=== PATIENT | female | born 1995 | race Caucasian/White ===

== ENCOUNTER → 2018-02-21 16:31 | Outpatient (CLI) | payer SELFPAY ==
[2018-02-21 18:18] LABS: APPEARANCE CLEAR (CLEAR); BILIRUBIN NEGATIVE (NEGATIVE); COLOR YELLOW (YELLOW); GLUCOSE NEGATIVE (NEGATIVE); KETONE NEGATIVE (NEGATIVE); NITRITE NEGATIVE (NEGATIVE); PROTEIN NEGATIVE (NEGATIVE); UROBILINOGEN NORMAL (NORMAL)
[2018-02-21 18:20] LABS: WHITE CELLS - URINE OCC /hpf (0-5)
[2018-02-21 18:21] LABS: BACTERIA FEW /hpf (NONE SEEN)
[2018-02-21 18:31] LABS: UDS - AMPHET NEGATIVE QUAL (NEGATIVE); UDS - BARB NEGATIVE QUAL (NEGATIVE); UDS - BENZO NEGATIVE QUAL (NEGATIVE); UDS - COCAINE NEGATIVE QUAL (NEGATIVE); UDS - OPIATE NEGATIVE QUAL (NEGATIVE); UDS - PCP NEGATIVE QUAL (NEGATIVE); UDS - THC NEGATIVE QUAL (NEGATIVE)
== END | disposition home or self-care (01) ==
LOC: D.LDO 16:31
PROVIDERS: Obstetrics & Gynecology
DX: O26.892 Other specified pregnancy related conditions, second trimester (principal); Z3A.21 21 weeks gestation of pregnancy; R10.30 Lower abdominal pain, unspecified; M54.5 Low back pain

== ENCOUNTER → 2018-03-31 19:24 | Outpatient (CLI) | payer SELFPAY ==
[2018-03-31 20:51] LABS: CREATININE - SERUM 0.5 mg/dL (0.6-1.3)
== END | disposition home or self-care (01) ==
LOC: D.LDO 19:24
PROVIDERS: Obstetrics & Gynecology
DX: O26.892 Other specified pregnancy related conditions, second trimester (principal); Z3A.27 27 weeks gestation of pregnancy; R06.02 Shortness of breath; R07.9 Chest pain, unspecified; R05 Cough

== ENCOUNTER → 2018-06-09 17:05 | Outpatient (CLI) | payer SELFPAY ==
[~2018-06-09 17:05] MED LIST: ACETAMINOPHEN325 MG PO; FERROUS SULFAT325 MG PO; IBUPROFEN800 MG PO; TUMS X-STR300 MG PO; ZPAK PO
[2018-06-09 18:44] LABS: APPEARANCE CLEAR (CLEAR); BILIRUBIN NEGATIVE (NEGATIVE); COLOR YELLOW (YELLOW); GLUCOSE NEGATIVE (NEGATIVE); KETONE NEGATIVE (NEGATIVE); NITRITE NEGATIVE (NEGATIVE); PROTEIN NEGATIVE (NEGATIVE); SPECIFIC GRAVITY 1.015 (1.005-1.020); UROBILINOGEN NORMAL (NORMAL); WHITE CELLS - URINE 0-5 /hpf (0-5)
[2018-06-09 18:45] LABS: BACTERIA FEW /hpf (NONE SEEN); EPITHELIAL CELLS 0-5 /hpf (0-5); RED CELLS - URINE OCC /hpf (0-5)
[2018-06-14 10:00] VITALS: BMI 27.0
== END | disposition home or self-care (01) ==
LOC: D.LDO 17:05
PROVIDERS: Obstetrics & Gynecology
DX: O26.893 Other specified pregnancy related conditions, third trimester (principal); Z3A.37 37 weeks gestation of pregnancy

== ENCOUNTER 2018-06-13 20:17 | Inpatient (IN) | payer MEDICAID ==
[~2018-06-13] VITALS: Ht 180.3 cm; Wt 88.0 kg
[~2018-06-13 20:17] MED LIST changes: -ACETAMINOPHEN325 MG PO; -IBUPROFEN800 MG PO; -ZPAK PO
[2018-06-13] MEDS ORDERED: ACETAMINOPHEN325 MG PO (21:02)
[2018-06-13 21:39] LABS: HEMATOCRIT 27.3 % (36.0-48.0); HEMOGLOBIN 8.9 g/dL (12-16); MCH 28.1 pg (26.0-34.0); MCHC 32.6 g/dL (31.0-37.0); MCV 86.1 fL (80.0-100.0); MEAN PLATELET VOLUME 9.3 fL (7.4-10.4); RBC 3.17 10x6/uL (4.00-5.40); RDW 14.1 % (11.5-14.5); UDS - AMPHET NEGATIVE QUAL (NEGATIVE); UDS - BARB NEGATIVE QUAL (NEGATIVE); UDS - BENZO NEGATIVE QUAL (NEGATIVE); UDS - COCAINE NEGATIVE QUAL (NEGATIVE); UDS - OPIATE NEGATIVE QUAL (NEGATIVE); UDS - PCP NEGATIVE QUAL (NEGATIVE); UDS - THC NEGATIVE QUAL (NEGATIVE); WBC 22.8 10x3/uL (4.8-10.8)
[2018-06-13 21:40] VITALS: BP 117/64; BMI 27.1
[2018-06-14 10:00] VITALS: Ht 180.3 cm; Wt 88.0 kg
[2018-06-14 10:25] LABS: HEMATOCRIT 27.9 % (36.0-48.0); HEMOGLOBIN 9.1 g/dL (12-16); MCH 28.1 pg (26.0-34.0); MCHC 32.6 g/dL (31.0-37.0); MCV 86.1 fL (80.0-100.0); MEAN PLATELET VOLUME 9.2 fL (7.4-10.4); PLATELET COUNT 226 10x3/uL (130-400); RBC 3.24 10x6/uL (4.00-5.40); RDW 14.3 % (11.5-14.5); WBC 21.6 10x3/uL (4.8-10.8)
[2018-06-14 10:54] LABS: LYMPHOCYTES 14 % (15-50); MONOCYTES 8 % (2-11); NEUTROPHILS 76 % (40-80)
[2018-06-14 10:55] LABS: PLATELET ESTIMATE NORMAL
[2018-06-14 19:26] VITALS: BP 103/58
[2018-06-15 02:50] LABS: BASOPHILS 0.1 % (0-2); EOSINOPHILS 0.9 % (0-7); HEMATOCRIT 29.4 % (36.0-48.0); HEMOGLOBIN 9.7 g/dL (12-16); IMMATURE GRANULOCYTES 0.6 % (0-5); LYMPHOCYTES 16.5 % (15-50); MCH 28.5 pg (26.0-34.0); MCV 86.5 fL (80.0-100.0); MEAN PLATELET VOLUME 9.2 fL (7.4-10.4); MONOCYTES 7.8 % (2-11); NEUTROPHILS 74.1 % (40-80); PLATELET COUNT 210 10x3/uL (130-400); RDW 14.3 % (11.5-14.5); WBC 18.6 10x3/uL (4.8-10.8)
[2018-06-15 07:26] LABS: RAPID PLASMA REAGIN Non Reactive (Non Reactive)
[2018-06-15 07:49] VITALS: BP 99/58
[2018-06-15] MEDS ORDERED: IBUPROFEN800 MG PO (17:30)
[2018-06-15] MEDS ORDERED: ZPAK PO (17:30)
== END 2018-06-15 18:49 | disposition home or self-care (01) | DRG 805 ==
LOC: D.LDO 20:17 → D.LD 20:35
PROVIDERS: ADMIT Obstetrics & Gynecology
PROC: 10E0XZZ Delivery of Products of Conception, External Approach (ICD-10-PCS; principal; 2018-06-14)
DX: O99.02 Anemia complicating childbirth (principal); J18.9 Pneumonia, unspecified organism; Z37.0 Single live birth; Z3A.37 37 weeks gestation of pregnancy; O99.334 Smoking (tobacco) complicating childbirth; O69.81X0 Labor and delivery complicated by cord around neck, without compression, not applicable or unspecified; O99.52 Diseases of the respiratory system complicating childbirth; O26.893 Other specified pregnancy related conditions, third trimester; Z67.91 Unspecified blood type, Rh negative

== ENCOUNTER 2018-06-22 20:13 | Emergency (ER) | payer SELFPAY ==
[~2018-06-22] VITALS: Ht 180.3 cm; Wt 77.8 kg
[~2018-06-22 20:13] MED LIST changes: +ACETAMINOPHEN325 MG PO; +IBUPROFEN800 MG PO; +ZPAK PO
[2018-06-22 20:35] VITALS: Ht 180.3 cm; Wt 77.8 kg
[2018-06-22 20:37] LABS: BASOPHILS 0.2 % (0-2); HEMATOCRIT 38.1 % (36.0-48.0); IMMATURE GRANULOCYTES 0.2 % (0-5); LYMPHOCYTES 25.6 % (15-50); MCH 28.4 pg (26.0-34.0); MCHC 34.1 g/dL (31.0-37.0); MCV 83.4 fL (80.0-100.0); MEAN PLATELET VOLUME 8.9 fL (7.4-10.4); MONOCYTES 8.8 % (2-11); NEUTROPHILS 63.2 % (40-80); RBC 4.57 10x6/uL (4.00-5.40); RDW 13.2 % (11.5-14.5); WBC 8.6 10x3/uL (4.8-10.8)
[2018-06-22 20:43] LABS: PLATELET COUNT 308 10x3/uL (130-400)
[2018-06-22 20:58] LABS: ALBUMIN 3.3 g/dL (3.4-5.0); ALKALINE PHOSPHATASE 84 U/L (46-116); ALT (SGPT) 31 U/L (10-68); BILIRUBIN - TOTAL 0.36 mg/dL (0.2-1.3); CALC OSMOLALITY 279 mosm/kg (275-300); CALCIUM 8.6 mg/dL (8.5-10.1); CARBON DIOXIDE 20.6 mmol/L (21.0-32.0); CHLORIDE - SERUM 106 mmol/L (98-107); GLUCOSE 106 mg/dL (74-106); POTASSIUM - SERUM 4.3 mmol/L (3.5-5.1); PROTEIN - SERUM 7.4 g/dL (6.4-8.2); SODIUM 141 mmol/L (136-145); UREA NITROGEN 11 mg/dL (7-18); eGFR NON AFRICAN AMERICAN 73 mL/min (90-120)
[2018-06-22 20:58] LABS: APTT 27.9 SECONDS (22.8-39.4); INR 1.13 (0.85-1.17)
[2018-06-22 20:59] LABS: D-DIMER-QUANTITATIVE 1.45 ug/mLFEU (0.20-0.54)
[2018-06-22 21:11] LABS: CKMB 0.2 U/L (0.0-3.6); CREATINE KINASE 62 UL (21-215); LDH 241 U/L (81-234); PRO BNP 195 pg/mL (0-125); URIC ACID 7.1 mg/dL (2.6-7.2)
[2018-06-22 21:15] LABS: TROPONIN-I < 0.017 ng/mL (0.000-0.060)
[2018-06-22 22:00] LABS: APPEARANCE HAZY (CLEAR); BILIRUBIN NEGATIVE (NEGATIVE); COLOR YELLOW (YELLOW); GLUCOSE NEGATIVE (NEGATIVE); KETONE NEGATIVE (NEGATIVE); NITRITE NEGATIVE (NEGATIVE); PROTEIN NEGATIVE (NEGATIVE); SPECIFIC GRAVITY 1.015 (1.005-1.020); UROBILINOGEN NORMAL (NORMAL)
[2018-06-22 22:01] LABS: BACTERIA MODERATE /hpf (NONE SEEN); EPITHELIAL CELLS 0-5 /hpf (0-5)
[2018-06-22 22:09] LABS: UDS - AMPHET NEGATIVE QUAL (NEGATIVE); UDS - BARB NEGATIVE QUAL (NEGATIVE); UDS - BENZO NEGATIVE QUAL (NEGATIVE); UDS - COCAINE NEGATIVE QUAL (NEGATIVE); UDS - OPIATE NEGATIVE QUAL (NEGATIVE); UDS - PCP NEGATIVE QUAL (NEGATIVE); UDS - THC NEGATIVE QUAL (NEGATIVE)
[2018-06-23 01:06] VITALS: BP 128/82
--- NOTE | 2018-06-26 10:55 | EC ---
PATIENT:KATHLEEN SINGH DATE OF SERVICE: 06/22/18 SEX: F MEDICAL RECORD: [id number] DATE OF : [birth year] LOCATION:D.ER AGE OF PATIENT: 23 ADMISSION DATE: 06/22/18 REFERRING PHYSICIAN: INTERPRETING PHYSICIAN: MIKHAIL CRONIN MD ECHOCARDIOGRAM REPORT ECHO CHARGES 4 ECHO COMPLETE Date: 06/23/18 CLINICAL DIAGNOSIS: ELEVATED BNP ECHOCARDIOGRAPHIC MEASUREMENTS (adult normal given) AC root (d.<3.7cm) 3.1 cm LV Septum d (<1.2 cm> 1.1 cm Valve Excursion 2.1 cm LV Septum (systole) 1.5 cm Left Atria (s.<4.0cm> 3.9 cm LVPW d(<1.2cm) 0.9 cm RV (d.<2.3cm) 2.9 cm LVPW (sytole) 1.5 cm LV diastole(<5.6CM) 5.8 cm MV E-F(>70mm/sec) cm LV systole 3.6 cm LVOT Diameter 2.0 cm MV exc.(>10mm) cm Est.ejection fraction (50-75%) % DOPPLER: LVIT cm/sec A 53.0 cm/sec E 121 cm/sec LA cm/sec RVSP 55.3 mmHg LVOT 115 cm/sec AOP1/2T m/s Asc. Ao 127 cm/sec RVOT 62.0 cm/sec RA cm/sec PA 101 cm/sec AV Gradient Peak 6.4 mmHg AV Mean 2.9 mmHg AV Area 2.6 cm MV Gradient Peak 6.9 mmHg MV Mean 1.9 mmHg MV Area cm COMMENTS: Skating Rink Ice Maker: Jurgen PAIGE TAOPI Accounting Associate: 1 Dr. Cronin TAPE# PACS Pericardial Effusion N DATE OF SERVICE: 06/23/2018 FINDINGS: 1. Left ventricular chamber size is within normal limits. Left ventricular systolic function is normal. Overall ejection fraction is estimated at 55% to 60%. 2. Left atrium, right atrium, and right ventricular chamber sizes all within normal limit. 3. Valvular structures have normal structure and motion. 4. Doppler interrogation reveals mild mitral regurgitation and mild tricuspid ECHOCARDIOGRAM REPORT [id number] KATHLEEN SINGH regurgitation. No other valvular insufficiency or stenosis. Pulmonary systolic pressure is elevated, estimated at 55 mmHg. 5. No evidence of pericardial effusion or left ventricular thrombus. TRANSINT:[id number] Voice Confirmation ID: [id number] DOCUMENT ID: [id number] MIKHAIL CRONIN MD at 1055 CC: [id number] DICTATION DATE: 06/23/18 1221 SALES RELATIONSHIP MANAGER: 06/23/18 1340 DEP ER 06/23/18 [place] [id number] [place] [id number]
== END 2018-06-23 01:07 | disposition home or self-care (01) ==
LOC: D.ER 20:13
PROVIDERS: Family Medicine; Obstetrics & Gynecology
DX: O90.89 Other complications of the puerperium, not elsewhere classified (principal); R07.9 Chest pain, unspecified; R00.1 Bradycardia, unspecified

== ENCOUNTER 2019-01-27 00:14 | Emergency (ER) | payer SELFPAY ==
[~2019-01-27] VITALS: Ht 180.3 cm; Wt 90.7 kg
[2019-01-27 00:27] VITALS: Ht 180.3 cm; Wt 90.7 kg
[2019-01-27 00:41] LABS: BASOPHILS 0.2 % (0-2); EOSINOPHILS 3.3 % (0-7); HEMATOCRIT 35.7 % (36.0-48.0); HEMOGLOBIN 11.5 g/dL (12-16); IMMATURE GRANULOCYTES 0.4 % (0-5); LYMPHOCYTES 23.6 % (15-50); MCH 28.5 pg (26.0-34.0); MCHC 32.2 g/dL (31.0-37.0); MCV 88.6 fL (80.0-100.0); MONOCYTES 7.1 % (2-11); NEUTROPHILS 65.4 % (40-80); PLATELET COUNT 280 10x3/uL (130-400); RBC 4.03 10x6/uL (4.00-5.40); WBC 12.7 10x3/uL (4.8-10.8)
[2019-01-27 00:43] LABS: APPEARANCE HAZY (CLEAR); BILIRUBIN NEGATIVE (NEGATIVE); COLOR YELLOW (YELLOW); GLUCOSE NEGATIVE (NEGATIVE); KETONE NEGATIVE (NEGATIVE); NITRITE NEGATIVE (NEGATIVE); PROTEIN NEGATIVE (NEGATIVE); SPECIFIC GRAVITY 1.015 (1.005-1.020); UROBILINOGEN NORMAL (NORMAL)
[2019-01-27 00:46] LABS: HCG URINE NEGATIVE (NEGATIVE)
[2019-01-27 00:53] LABS: ALKALINE PHOSPHATASE 67 U/L (46-116); ALT (SGPT) 18 U/L (10-68); BILIRUBIN - TOTAL 0.24 mg/dL (0.2-1.3); CALC OSMOLALITY 286 mosm/kg (275-300); CALCIUM 8.3 mg/dL (8.5-10.1); CARBON DIOXIDE 25.8 mmol/L (21.0-32.0); CHLORIDE - SERUM 107 mmol/L (98-107); CREATININE - SERUM 0.8 mg/dL (0.6-1.3); GLUCOSE 126 mg/dL (74-106); LIPASE 126 U/L (73-393); POTASSIUM - SERUM 4.3 mmol/L (3.5-5.1); PROTEIN - SERUM 7.7 g/dL (6.4-8.2); SODIUM 142 mmol/L (136-145); UREA NITROGEN 17 mg/dL (7-18); eGFR NON AFRICAN AMERICAN > 90 mL/min (90-120)
[2019-01-27 02:46] VITALS: BP 115/69
== END 2019-01-27 02:47 | disposition home or self-care (01) ==
LOC: D.ER 00:14
PROVIDERS: Family Medicine
DX: R10.9 Unspecified abdominal pain (principal)

== ENCOUNTER 2019-02-22 17:54 | Emergency (ER) | payer MEDICAID ==
[~2019-02-22] VITALS: Ht 180.3 cm; Wt 77.3 kg
[2019-02-22 18:09] VITALS: BP 109/67; Ht 180.3 cm; Wt 77.3 kg
[2019-02-22 18:31] LABS: BASOPHILS 0.3 % (0-2); EOSINOPHILS 1.8 % (0-7); HEMATOCRIT 37.5 % (36.0-48.0); HEMOGLOBIN 12.2 g/dL (12-16); IMMATURE GRANULOCYTES 0.1 % (0-5); LYMPHOCYTES 21.6 % (15-50); MCHC 32.5 g/dL (31.0-37.0); MONOCYTES 9.2 % (2-11); PLATELET COUNT 280 10x3/uL (130-400); RBC 4.36 10x6/uL (4.00-5.40); RDW 12.7 % (11.5-14.5)
[2019-02-22 18:37] LABS: APPEARANCE CLEAR (CLEAR); BILIRUBIN NEGATIVE (NEGATIVE); COLOR YELLOW (YELLOW); GLUCOSE NEGATIVE (NEGATIVE); HCG URINE NEGATIVE (NEGATIVE); KETONE NEGATIVE (NEGATIVE); NITRITE NEGATIVE (NEGATIVE); PROTEIN NEGATIVE (NEGATIVE); SPECIFIC GRAVITY 1.005 (1.005-1.020); UROBILINOGEN NORMAL (NORMAL)
[2019-02-22 18:39] LABS: CALC OSMOLALITY 278 mosm/kg (275-300); CALCIUM 8.7 mg/dL (8.5-10.1); CHLORIDE - SERUM 104 mmol/L (98-107); CREATININE - SERUM 0.9 mg/dL (0.6-1.3); GLUCOSE 105 mg/dL (74-106); POTASSIUM - SERUM 3.7 mmol/L (3.5-5.1); SODIUM 139 mmol/L (136-145); UREA NITROGEN 15 mg/dL (7-18); eGFR NON AFRICAN AMERICAN 81 mL/min (90-120)
[2019-02-22 18:42] LABS: RED CELLS - URINE 0-5 /hpf (0-5); WHITE CELLS - URINE 0-5 /hpf (NEGATIVE)
[2019-02-22 18:43] LABS: BACTERIA FEW /hpf (NEGATIVE); EPITHELIAL CELLS 0-5 /hpf (0-5)
[2019-02-22 18:50] LABS: ALKALINE PHOSPHATASE 152 U/L (46-116); ALT (SGPT) 1044 U/L (10-68); AMYLASE - SERUM 41 U/L (25-115); BILIRUBIN - TOTAL 1.89 mg/dL (0.2-1.3); LIPASE 112 U/L (73-393); PROTEIN - SERUM 7.9 g/dL (6.4-8.2)
[2019-02-22 19:28] LABS: UDS - AMPHET NEGATIVE QUAL (NEGATIVE); UDS - BARB NEGATIVE QUAL (NEGATIVE); UDS - BENZO NEGATIVE QUAL (NEGATIVE); UDS - COCAINE NEGATIVE QUAL (NEGATIVE); UDS - OPIATE NEGATIVE QUAL (NEGATIVE); UDS - PCP NEGATIVE QUAL (NEGATIVE); UDS - THC NEGATIVE QUAL (NEGATIVE)
== END 2019-02-22 20:42 | disposition left against medical advice (07) ==
LOC: D.ER 17:54
PROVIDERS: Emergency Medicine
DX: R10.9 Unspecified abdominal pain (principal); R11.10 Vomiting, unspecified

== ENCOUNTER 2019-02-23 08:42 | Inpatient (IN) | payer MEDICAID ==
[~2019-02-23] VITALS: Ht 180.3 cm; Wt 77.3 kg
--- NOTE | 2019-02-23 10:02 | NUR ---
BLOOD COLLECTED VIA IV; URINE COLLECTED; SENT TO LAB VIA TUBE SYSTEM.
[2019-02-23 10:15] LABS: BASOPHILS 0.2 % (0-2); EOSINOPHILS 2.1 % (0-7); HEMATOCRIT 37.4 % (36.0-48.0); HEMOGLOBIN 12.3 g/dL (12-16); IMMATURE GRANULOCYTES 0.2 % (0-5); LYMPHOCYTES 15.3 % (15-50); MCH 28.4 pg (26.0-34.0); MCHC 32.9 g/dL (31.0-37.0); MCV 86.4 fL (80.0-100.0); MEAN PLATELET VOLUME 9.1 fL (7.4-10.4); MONOCYTES 8.7 % (2-11); NEUTROPHILS 73.5 % (40-80); PLATELET COUNT 262 10x3/uL (130-400); RBC 4.33 10x6/uL (4.00-5.40); RDW 12.8 % (11.5-14.5); WBC 8.9 10x3/uL (4.8-10.8)
[2019-02-23 10:21] LABS: APPEARANCE CLEAR (CLEAR); BILIRUBIN NEGATIVE (NEGATIVE); COLOR DK YELLOW (YELLOW); GLUCOSE NEGATIVE (NEGATIVE); KETONE MODERATE mg/dL (NEGATIVE); NITRITE NEGATIVE (NEGATIVE); PROTEIN NEGATIVE (NEGATIVE); SPECIFIC GRAVITY 1.015 (1.005-1.020); UROBILINOGEN NORMAL (NORMAL)
[2019-02-23 10:22] LABS: BACTERIA FEW /hpf (NEGATIVE); CALC OSMOLALITY 276 mosm/kg (275-300); CALCIUM 8.5 mg/dL (8.5-10.1); CARBON DIOXIDE 24.7 mmol/L (21.0-32.0); CHLORIDE - SERUM 105 mmol/L (98-107); CREATININE - SERUM 0.8 mg/dL (0.6-1.3); EPITHELIAL CELLS 0-5 /hpf (0-5); GLUCOSE 119 mg/dL (74-106); POTASSIUM - SERUM 3.8 mmol/L (3.5-5.1); RED CELLS - URINE 0-5 /hpf (0-5); SODIUM 138 mmol/L (136-145); UREA NITROGEN 12 mg/dL (7-18); WHITE CELLS - URINE 0-5 /hpf (NEGATIVE); eGFR NON AFRICAN AMERICAN > 90 mL/min (90-120)
[2019-02-23 10:27] LABS: ALBUMIN 3.9 g/dL (3.4-5.0); ALKALINE PHOSPHATASE 187 U/L (46-116); ALT (SGPT) 986 U/L (10-68); BILIRUBIN - TOTAL 2.51 mg/dL (0.2-1.3); HCG SERUM NEGATIVE (NEGATIVE); LIPASE 85 U/L (73-393)
--- NOTE | 2019-02-23 12:19 | NUR ---
PATIENT TO MRI VIA WHEELCHAIR.
[2019-02-23 12:54] VITALS: BP 111/53
--- NOTE | 2019-02-23 12:55 | NUR ---
PATIENT RETURNED FROM MRI
--- NOTE | 2019-02-23 14:00 | NUR ---
ASSESSMENT PER FLOW SHEET. PT IS WITHOUT DISTRESS.ORIENTATION TO ROOM.CALL LIGHT IN REACH.
--- NOTE | 2019-02-23 16:08 | MORECARE ---
CASE MANAGEMENT DISCHARGE SUMMARY PATIENT: KATHLEEN SINGH UNIT: [id number] ADM DATE: 02/23/19 AGE: 24 : [birth year] SEX: F ROOM/BED: D.2224 AUTHOR: BRANDY GUAMAN PHYSICIAN: REFERRING PHYSICIAN: KENDRA SCHWAB MD DATE OF SERVICE: 02/23/19 Discharge Plan Patient Name: KATHLEEN SINGH Facility: [facility]:[place] : 1995 Planned Disposition: Home Anticipated Discharge Date: 02/26/19 Discharge Date: Expected LOS: 3 Initial Reviewer: [email or web address] Initial Review Date: 02/23/2019 Generated: 02/23/19 5:07 pm Patient Name: KATHLEEN SINGH Page 17759 at 1608 All edits/amendments must be made on the electronic document DICTATION DATE: 02/23/191606 SYSTEM TRAINER: AUNG 02/23/191606 RPT#: [id number] DC DATE: STATUS: ADM IN [facility] [address] [place] [address] END OF REPORT
--- NOTE | 2019-02-23 16:22 | MORECARE ---
CASE MANAGEMENT DISCHARGE SUMMARY PATIENT: KATHLEEN SINGH UNIT: [id number] ADM DATE: 02/23/19 AGE: 24 : [birth year] SEX: F ROOM/BED: D.2224 AUTHOR: ROWENA,DOC PHYSICIAN: REFERRING PHYSICIAN: KENDRA SCHWAB MD DATE OF SERVICE: 02/23/19 Discharge Plan Patient Name: KATHLEEN SINGH Facility: [facility]:[place] : 1995 Planned Disposition: Home Anticipated Discharge Date: 02/26/19 Discharge Date: Expected LOS: 3 Initial Reviewer: [email or web address] Initial Review Date: 02/23/2019 Generated: 02/23/19 5:21 pm DCP- Discharge Planning Updated by [email or web address]: Zoila Bahena on 02/23/19 3:[address] DC PLAN: Return home with significant other and her child. ANTICIPATED DC NEEDS: Denied known dc needs in the Er. CM met with patient to complete initial dc planning assessment. CM educated patient on the CM role and verbal consent given by patient to complete assessment. CM verified patient's address, phone number, and emergency contact phone numbers. Patient lives at home with her significant other. At discharge patient plans to return home and feels this is a safe discharge. CM discussed availability of home health, rehab services, and medical equipment. Patient denied known discharge needs at this time. Transportation provider at discharge will be her significant other, Dario. CM will continue to follow and will assist as needed with dc plans/needs. Zoila Bahena RN, [facility] DCPIA - Discharge Planning Initial Assessment Updated by [email or web address]: Zoila Bahena on 02/23/19 4:14 pm * Is the patient Alert and Oriented? Yes * How many steps to enter\exit or inside your home? * PCP Doesn't have one. * Pharmacy [facility] in [place] * Preadmission Environment Home with Family * ADLs Independent * Equipment Glucometer * Other Equipment has blood pressure machine and glucometer. She is not diabetic but checks her sugar when she feels bad. * List name and contact numbers for known caregivers / representatives who currently or will assist patient after discharge: Dario De La Cruz - [facility] - [phone] * Verbal permission to speak to the caregivers and representatives has been obtained from the patient. Yes * Community resources currently utilized None * Additional services required to return to the preadmission environment? No * Can the patient safely return to the preadmission environment? Yes * Has this patient been hospitalized within the prior 30 days at any hospital? No Last DP export: 02/23/19 3:08 p Patient Name: KATHLEEN SINGH Page 15017 at 1622 All edits/amendments must be made on the electronic document DICTATION DATE: 02/23/19 162 INTERLOCKING MACHINE OPERATOR: AUNG 02/23/19 1621 RPT#: [id number] DC DATE: STATUS: ADM IN [facility] [address] [place] [address] END OF REPORT
[2019-02-23 16:49] VITALS: BP 96/49
[2019-02-23 19:48] VITALS: BP 96/49; Ht 180.3 cm; Wt 77.3 kg
[2019-02-23 20:30] LABS: UDS - AMPHET NEGATIVE QUAL (NEGATIVE); UDS - BARB NEGATIVE QUAL (NEGATIVE); UDS - BENZO NEGATIVE QUAL (NEGATIVE); UDS - COCAINE NEGATIVE QUAL (NEGATIVE); UDS - OPIATE NEGATIVE QUAL (NEGATIVE); UDS - PCP NEGATIVE QUAL (NEGATIVE); UDS - THC NEGATIVE QUAL (NEGATIVE)
[2019-02-23 21:02] VITALS: BP 104/55
--- NOTE | 2019-02-23 21:21 | NUR ---
PT C/O NAUSEA AND ABDOMINAL PAIN 10/25. GAVE ZOFRAN 4 MG AND MORPHINE 4 MG IV PUSH. GAVE SCHEDULED CARAFATE WITH A SIP OF WATER. ASSESSMENT COMPLETE PER FLOW-SHEET. NO OTHER NEEDS. WILL REASSESS AND CONTINUE TO MONITOR.
[2019-02-24] VITALS (7 sets, daily range): BP systolic 95–122; BP diastolic 42–59
[2019-02-24 06:09] LABS: HEPATITIS C ANTIBODY <0.1 S/CO RAT (0.0-0.9)
[2019-02-24 06:25] LABS: BASOPHILS 0.2 % (0-2); EOSINOPHILS 2.8 % (0-7); HEMATOCRIT 34.6 % (36.0-48.0); HEMOGLOBIN 10.7 g/dL (12-16); IMMATURE GRANULOCYTES 0.2 % (0-5); LYMPHOCYTES 30.9 % (15-50); MCH 27.4 pg (26.0-34.0); MCHC 30.9 g/dL (31.0-37.0); MEAN PLATELET VOLUME 9.6 fL (7.4-10.4); MONOCYTES 10.2 % (2-11); NEUTROPHILS 55.7 % (40-80); PLATELET COUNT 210 10x3/uL (130-400); RBC 3.91 10x6/uL (4.00-5.40); RDW 12.8 % (11.5-14.5)
[2019-02-24 06:37] LABS: MCV 88.5 fL (80.0-100.0); WBC 6.5 10x3/uL (4.8-10.8)
[2019-02-24 06:48] LABS: ALBUMIN 3.4 g/dL (3.4-5.0); ALKALINE PHOSPHATASE 150 U/L (46-116); CALCIUM 7.9 mg/dL (8.5-10.1); CHLORIDE - SERUM 107 mmol/L (98-107); CREATININE - SERUM 0.8 mg/dL (0.6-1.3); MAGNESIUM - SERUM 1.9 mg/dL (1.8-2.4); PHOSPHOROUS 3.1 mg/dL (2.5-4.9); POTASSIUM - SERUM 4.1 mmol/L (3.5-5.1); PROTEIN - SERUM 6.5 g/dL (6.4-8.2); SODIUM 141 mmol/L (136-145); UREA NITROGEN 12 mg/dL (7-18); eGFR NON AFRICAN AMERICAN > 90 mL/min (90-120)
[2019-02-24 06:49] LABS: ALT (SGPT) 682 U/L (10-68); CALC OSMOLALITY 278 mosm/kg (275-300); GLUCOSE 55 mg/dL (74-106)
--- NOTE | 2019-02-24 14:32 | NUR ---
ASSESSMENT PER FLOW SHEET. PT IS WITHOUT DISTRESS.CALL LIGHT IN REACH
--- NOTE | 2019-02-24 14:33 | NUR ---
IV RESITED TO LEFT FOREARM BY ANDREW VIDES RN. IV LEFT AC DCD BECAUSE SITE WAS TENDER. SOME SWELLING NOTED TO ARM.
--- NOTE | 2019-02-24 19:25 | NUR ---
PT SITTING UP IN BED WITHOUT DISTRESS, AOX4. UP AD SCOTT. IV LEFT FA INFUSING NS @ 100, PROTONIX @ 10. SCDS ON. MORPHINE AND ZOFRAN GIVEN FOR PAIN IN ABD AND NAUSEA. PT STATES SHE BELIEVES BROTH SHE DRANK EARLIER MADE HER FEEL WORSE. DENIES NEEDS AT THIS TIME. CL IN REACH, WILL CTM
--- NOTE | 2019-02-24 20:45 | NUR ---
PT DID NOT TOLERATE CARAFATE. MADE PT FEEL NAUSEOUS. STATES SHE DOES NOT WANT TO TRY AND TAKE AGAIN.
--- NOTE | 2019-02-24 22:00 | NUR ---
PT REQUESTED AND GIVEN POPSICLE. DENIES FURTHER NEEDS. WILL CTM
--- NOTE | 2019-02-25 00:15 | NUR ---
PT STATES PAIN 7/10 IN ABD WITH SLIGHT NAUSEOUS. GAVE ZOFRAN AND MORPHINE ORDERED. WILL CTM
[2019-02-25 00:36] VITALS: BP 96/43
--- NOTE | 2019-02-25 04:20 | NUR ---
PT STATES PAIN IN ABD 09/25, GAVE MORPHINE AND ZOFRAN ORDERED
[2019-02-25 05:18] LABS: BASOPHILS 0.2 % (0-2); EOSINOPHILS 3.1 % (0-7); HEMATOCRIT 29.9 % (36.0-48.0); HEMOGLOBIN 9.5 g/dL (12-16); IMMATURE GRANULOCYTES 0.2 % (0-5); LYMPHOCYTES 40.8 % (15-50); MCH 27.3 pg (26.0-34.0); MCHC 31.8 g/dL (31.0-37.0); MEAN PLATELET VOLUME 9.1 fL (7.4-10.4); MONOCYTES 10.3 % (2-11); NEUTROPHILS 45.4 % (40-80); PLATELET COUNT 203 10x3/uL (130-400); RBC 3.48 10x6/uL (4.00-5.40); RDW 12.8 % (11.5-14.5)
[2019-02-25 05:19] LABS: MCV 85.9 fL (80.0-100.0); WBC 4.5 10x3/uL (4.8-10.8)
[2019-02-25 05:21] VITALS: BP 109/55
[2019-02-25 05:46] LABS: ALBUMIN 3.1 g/dL (3.4-5.0); ALKALINE PHOSPHATASE 150 U/L (46-116); BILIRUBIN - INDIRECT 0.34 mg/dL (0.00-1.00); BILIRUBIN - TOTAL 0.64 mg/dL (0.2-1.3); CALCIUM 7.7 mg/dL (8.5-10.1); CARBON DIOXIDE 25.4 mmol/L (21.0-32.0); CHLORIDE - SERUM 106 mmol/L (98-107); CREATININE - SERUM 0.7 mg/dL (0.6-1.3); MAGNESIUM - SERUM 1.6 mg/dL (1.8-2.4); PHOSPHOROUS 3.1 mg/dL (2.5-4.9); POTASSIUM - SERUM 3.8 mmol/L (3.5-5.1); SODIUM 140 mmol/L (136-145); eGFR NON AFRICAN AMERICAN > 90 mL/min (90-120)
[2019-02-25 05:54] LABS: ALT (SGPT) 451 U/L (10-68); CALC OSMOLALITY 274 mosm/kg (275-300); GLUCOSE 86 mg/dL (74-106); UREA NITROGEN 5 mg/dL (7-18)
--- NOTE | 2019-02-25 07:20 | NUR ---
PT RESTING IN BED. NO SIGNS OF DISTRESS. IV TO LEFT FORARM PATENT NO REDNESS OR TENDERNESS. COMPLAINS OF ABD PAIN. MEDICATIONS ALREADY GIVEN. DENIES ANY FURTHER NEED AT THIS TIME. CALL LIGHT IN REACH. BED LOW POSITION. NO FAMILY AT BEDSIDE AT THIS TIME.
[2019-02-25 09:19] VITALS: BP 99/68
[2019-02-25 12:20] VITALS: BP 98/53
[2019-02-25] MEDS ORDERED: CARAFATE1 G PO (16:52)
--- NOTE | 2019-02-25 16:56 | NUR ---
I have reviewed this patient and I concur with the Shift Assessment completed by the Licensed Practical Nurse today this shift.
[2019-02-25 17:04] VITALS: BP 106/61
--- NOTE | 2019-02-25 17:41 | NUR ---
DISCHARGE INSTRUCTIONS GIVEN. SEEMS TO UNDERSTAND INSTRUCTIONS. LEFT WITH HOSPITAL STAFF TO GO HOME IN PERSONAL RIDE. IV OUT TIP INTACT.
[2019-02-26] MEDS ORDERED: HYDROCODON-ACE1 EA10 PO (02:19)
[2019-02-26] MEDS ORDERED: PROTONIX40 MG PO (02:19)
--- NOTE | 2019-02-28 13:06 | MORECARE ---
CASE MANAGEMENT DISCHARGE SUMMARY PATIENT: KATHLEEN SINGH UNIT: [id number] ADM DATE: 02/23/19 AGE: 24 : [birth year] SEX: F ROOM/BED: D.2224 AUTHOR: ROWENA,DOC PHYSICIAN: REFERRING PHYSICIAN: KENDRA SCHWAB MD DATE OF SERVICE: 02/28/19 Discharge Plan Patient Name: KATHLEEN SINGH Facility: [facility]:[place] : 1995 Planned Disposition: Home Anticipated Discharge Date: 02/26/19 Discharge Date: 02/25/2019 Expected LOS: 3 Initial Reviewer: [email or web address] Initial Review Date: 02/23/2019 Generated: 02/28/19 2:05 pm DCP- Discharge Planning Updated by [email or web address]: Zoila Bahena on 02/23/19 3:[address] DC PLAN: Return home with significant other and her child. ANTICIPATED DC NEEDS: Denied known dc needs in the Er. CM met with patient to complete initial dc planning assessment. CM educated patient on the CM role and verbal consent given by patient to complete assessment. CM verified patient's address, phone number, and emergency contact phone numbers. Patient lives at home with her significant other. At discharge patient plans to return home and feels this is a safe discharge. CM discussed availability of home health, rehab services, and medical equipment. Patient denied known discharge needs at this time. Transportation provider at discharge will be her significant other, Dario. CM will continue to follow and will assist as needed with dc plans/needs. Zoila Bahena RN, [facility] DCPIA - Discharge Planning Initial Assessment Updated by [email or web address]: Zoila Bahena on 02/23/19 4:14 pm * Is the patient Alert and Oriented? Yes * How many steps to enter\exit or inside your home? * PCP Doesn't have one. * Pharmacy [facility] in [place] * Preadmission Environment Home with Family * ADLs Independent * Equipment Glucometer * Other Equipment has blood pressure machine and glucometer. She is not diabetic but checks her sugar when she feels bad. * List name and contact numbers for known caregivers / representatives who currently or will assist patient after discharge: Dario Jono eduardo formerly [facility] - [phone] * Verbal permission to speak to the caregivers and representatives has been obtained from the patient. Yes * Community resources currently utilized None * Additional services required to return to the preadmission environment? No * Can the patient safely return to the preadmission environment? Yes * Has this patient been hospitalized within the prior 30 days at any hospital? No Last DP export: 02/23/19 3:22 p Patient Name: KATHLEEN SINGH Page 61293 at 1306 All edits/amendments must be made on the electronic document DICTATION DATE: 02/28/19 1305 SOLUTIONS SALES EXECUTIVE: AUNG 02/28/19 1305 RPT#: [id number] DC DATE:02/25/19 STATUS: DIS IN [facility] [address] [place] [address] END OF REPORT
== END 2019-02-25 17:42 | disposition home or self-care (01) | DRG 445 ==
LOC: D.ER 08:42 → D.MS 11:54
PROVIDERS: Family Medicine; ADMIT Internal Medicine Nephrology; ATTEND Internal Medicine Nephrology
DX: K80.51 Calculus of bile duct without cholangitis or cholecystitis with obstruction (principal); F17.203 Nicotine dependence unspecified, with withdrawal; R74.0 Nonspecific elevation of levels of transaminase and lactic acid dehydrogenase [LDH]; K21.9 Gastro-esophageal reflux disease without esophagitis

== ENCOUNTER 2019-02-26 01:39 | Emergency (ER) | payer MEDICAID ==
[~2019-02-26] VITALS: Ht 180.3 cm; Wt 77.1 kg
[~2019-02-26 01:39] MED LIST changes: +CARAFATE1 G PO
[2019-02-26 01:40] VITALS: Ht 180.3 cm; Wt 77.1 kg
[2019-02-26] MEDS ORDERED: HYDROCODON-ACE1 EA10 PO (02:19)
[2019-02-26] MEDS ORDERED: PROTONIX40 MG PO (02:19)
[2019-02-26 02:49] VITALS: BP 113/47
== END 2019-02-26 02:49 | disposition home or self-care (01) ==
LOC: D.ER 01:39
DX: R10.9 Unspecified abdominal pain (principal); R79.89 Other specified abnormal findings of blood chemistry; R56.9 Unspecified convulsions; J45.909 Unspecified asthma, uncomplicated; K21.9 Gastro-esophageal reflux disease without esophagitis

== ENCOUNTER 2019-03-01 20:48 | Emergency (ER) | payer MEDICAID ==
[~2019-03-01] VITALS: Ht 180.3 cm; Wt 84.1 kg
[~2019-03-01 20:48] MED LIST changes: +HYDROCODON-ACE1 EA10 PO; +PROTONIX40 MG PO
[2019-03-01 21:05] VITALS: Ht 180.3 cm; Wt 84.1 kg
[2019-03-01 21:28] LABS: BASOPHILS 0.3 % (0-2); EOSINOPHILS 2.1 % (0-7); HEMATOCRIT 40.6 % (36.0-48.0); HEMOGLOBIN 13.3 g/dL (12-16); IMMATURE GRANULOCYTES 0.2 % (0-5); LYMPHOCYTES 22.4 % (15-50); MCH 28.5 pg (26.0-34.0); MCHC 32.8 g/dL (31.0-37.0); MCV 87.1 fL (80.0-100.0); MEAN PLATELET VOLUME 9.5 fL (7.4-10.4); MONOCYTES 9.4 % (2-11); NEUTROPHILS 65.6 % (40-80); RBC 4.66 10x6/uL (4.00-5.40); RDW 13.6 % (11.5-14.5); WBC 6.3 10x3/uL (4.8-10.8)
[2019-03-01 21:29] LABS: PLATELET COUNT 298 10x3/uL (130-400)
[2019-03-01 21:37] LABS: CALC OSMOLALITY 277 mosm/kg (275-300); CALCIUM 9.6 mg/dL (8.5-10.1); CARBON DIOXIDE 27.4 mmol/L (21.0-32.0); CHLORIDE - SERUM 103 mmol/L (98-107); CREATININE - SERUM 0.9 mg/dL (0.6-1.3); GLUCOSE 123 mg/dL (74-106); POTASSIUM - SERUM 4.1 mmol/L (3.5-5.1); SODIUM 140 mmol/L (136-145); UREA NITROGEN 7 mg/dL (7-18); eGFR NON AFRICAN AMERICAN 81 mL/min (90-120)
[2019-03-01 21:45] LABS: ALBUMIN 4.2 g/dL (3.4-5.0); ALKALINE PHOSPHATASE 332 U/L (46-116); ALT (SGPT) 746 U/L (10-68); AMYLASE - SERUM 55 U/L (25-115); BILIRUBIN - TOTAL 2.67 mg/dL (0.2-1.3); LIPASE 298 U/L (73-393); PROTEIN - SERUM 8.7 g/dL (6.4-8.2)
[2019-03-01 21:46] LABS: TROPONIN-I < 0.017 ng/mL (0.000-0.060)
[2019-03-01 22:41] LABS: APPEARANCE CLEAR (CLEAR); COLOR DK YELLOW (YELLOW); HCG URINE NEGATIVE (NEGATIVE)
[2019-03-01 22:42] LABS: BILIRUBIN NEGATIVE (NEGATIVE); GLUCOSE NEGATIVE (NEGATIVE); KETONE NEGATIVE (NEGATIVE); NITRITE NEGATIVE (NEGATIVE); PROTEIN NEGATIVE (NEGATIVE); UROBILINOGEN NORMAL (NORMAL)
[2019-03-01 22:44] LABS: EPITHELIAL CELLS 0-5 /hpf (0-5); RED CELLS - URINE 0-5 /hpf (0-5); WHITE CELLS - URINE NSEEN /hpf (NEGATIVE)
[2019-03-01 22:45] LABS: BACTERIA FEW /hpf (NEGATIVE)
[2019-03-02 05:04] VITALS: BP 113/59
== END 2019-03-02 05:07 | disposition other institution (70) ==
LOC: D.ER 20:48
PROVIDERS: Family Medicine
DX: K92.2 Gastrointestinal hemorrhage, unspecified (principal); K83.1 Obstruction of bile duct; R10.13 Epigastric pain; R11.2 Nausea with vomiting, unspecified; R56.9 Unspecified convulsions; J45.909 Unspecified asthma, uncomplicated; K21.9 Gastro-esophageal reflux disease without esophagitis; Z87.440 Personal history of urinary (tract) infections; Z98.890 Other specified postprocedural states; Z87.11 Personal history of peptic ulcer disease

== ENCOUNTER 2019-03-06 11:10 | Inpatient (IN) | payer MEDICAID ==
[~2019-03-06] VITALS: Ht 180.3 cm; Wt 78.6 kg
[2019-03-06 12:05] LABS: CALC OSMOLALITY 276 mosm/kg (275-300); CALCIUM 9.2 mg/dL (8.5-10.1); CHLORIDE - SERUM 104 mmol/L (98-107); CREATININE - SERUM 0.6 mg/dL (0.6-1.3); GLUCOSE 90 mg/dL (74-106); POTASSIUM - SERUM 3.5 mmol/L (3.5-5.1); SODIUM 139 mmol/L (136-145); UREA NITROGEN 10 mg/dL (7-18); eGFR NON AFRICAN AMERICAN > 90 mL/min (90-120)
[2019-03-06 12:06] LABS: HCG SERUM NEGATIVE (NEGATIVE)
[2019-03-06 12:11] LABS: ALBUMIN 3.9 g/dL (3.4-5.0); ALKALINE PHOSPHATASE 208 U/L (46-116); ALT (SGPT) 271 U/L (10-68); AMYLASE - SERUM 107 U/L (25-115); BILIRUBIN - TOTAL 0.75 mg/dL (0.2-1.3); LIPASE 936 U/L (73-393)
[2019-03-06 12:13] LABS: BASOPHILS 0.4 % (0-2); HEMATOCRIT 38.7 % (36.0-48.0); HEMOGLOBIN 12.4 g/dL (12-16); IMMATURE GRANULOCYTES 0.1 % (0-5); LYMPHOCYTES 35.5 % (15-50); MCH 27.7 pg (26.0-34.0); MCV 86.4 fL (80.0-100.0); MEAN PLATELET VOLUME 9.5 fL (7.4-10.4); PLATELET COUNT 297 10x3/uL (130-400); RBC 4.48 10x6/uL (4.00-5.40); RDW 13.4 % (11.5-14.5); WBC 7.6 10x3/uL (4.8-10.8)
[2019-03-06 12:20] LABS: APPEARANCE CLEAR (CLEAR); BILIRUBIN NEGATIVE (NEGATIVE); COLOR YELLOW (YELLOW); GLUCOSE NEGATIVE (NEGATIVE); KETONE NEGATIVE (NEGATIVE); NITRITE NEGATIVE (NEGATIVE); PROTEIN TRACE mg/dL (NEGATIVE); SPECIFIC GRAVITY 1.015 (1.005-1.020)
[2019-03-06 12:21] LABS: BACTERIA MODERATE /hpf (NEGATIVE); EPITHELIAL CELLS 0-5 /hpf (0-5); MUCUS >1+ /lpf (NONE SEEN); RED CELLS - URINE RARE /hpf (0-5); SPERMATOZOA RARE /hpf (NONE SEEN); WHITE CELLS - URINE OCC /hpf (NEGATIVE)
[2019-03-06 16:00] VITALS: BP 121/55
[2019-03-06 17:52] LABS: INR 1.03 (0.85-1.17)
[2019-03-06 17:53] LABS: D-DIMER-QUANTITATIVE 0.34 ug/mLFEU (0.20-0.54)
--- NOTE | 2019-03-06 18:05 | NUR ---
PATIENT ARRIVED TO THE FLOOR FROM THE ER. SHE CAME BY WHEELCHAIR AND HAS NS AT 125ML/HR
[2019-03-06 18:42] VITALS: BP 105/53; BMI 24.8
--- NOTE | 2019-03-06 19:10 | NUR ---
FABRICATION INSPECTOR WITH MSO4 BEGANM AND MUCH PT EDUCATION GIVEN PT REEFUSED SCDS AND SHE IS PUT ON WAITING LIST FOR TELEMETRY NONE AVAILABLE BED LOW AND LOCKJED CALL LIGHT IS IN REACH
[2019-03-06 20:00] VITALS: BP 98/52
[2019-03-07] VITALS: BP 101/56
--- NOTE | 2019-03-07 03:20 | NUR ---
I have reviewed this patient and I concur with the Shift Assessment completed by the Licensed Practical Nurse today this shift.
[2019-03-07 04:00] VITALS: BP 99/51
[2019-03-07 06:48] LABS: BASOPHILS 0.4 % (0-2); EOSINOPHILS 4.4 % (0-7); HEMATOCRIT 32.2 % (36.0-48.0); IMMATURE GRANULOCYTES 0.2 % (0-5); MCH 27.4 pg (26.0-34.0); MCHC 31.1 g/dL (31.0-37.0); MCV 88.2 fL (80.0-100.0); MEAN PLATELET VOLUME 9.6 fL (7.4-10.4); MONOCYTES 9.9 % (2-11); NEUTROPHILS 39.1 % (40-80); RBC 3.65 10x6/uL (4.00-5.40); RDW 13.4 % (11.5-14.5)
[2019-03-07 07:01] LABS: PLATELET COUNT 212 10x3/uL (130-400); WBC 4.7 10x3/uL (4.8-10.8)
[2019-03-07 07:20] LABS: ALBUMIN 2.9 g/dL (3.4-5.0); ALKALINE PHOSPHATASE 147 U/L (46-116); ALT (SGPT) 178 U/L (10-68); AMYLASE - SERUM 60 U/L (25-115); BILIRUBIN - TOTAL 0.68 mg/dL (0.2-1.3); CALC OSMOLALITY 276 mosm/kg (275-300); CARBON DIOXIDE 24.2 mmol/L (21.0-32.0); CHLORIDE - SERUM 108 mmol/L (98-107); CREATININE - SERUM 0.6 mg/dL (0.6-1.3); GLUCOSE 91 mg/dL (74-106); LIPASE 391 U/L (73-393); MAGNESIUM - SERUM 1.7 mg/dL (1.8-2.4); POTASSIUM - SERUM 3.9 mmol/L (3.5-5.1); PROTEIN - SERUM 6.1 g/dL (6.4-8.2); SODIUM 140 mmol/L (136-145); UREA NITROGEN 6 mg/dL (7-18); eGFR NON AFRICAN AMERICAN > 90 mL/min (90-120)
[2019-03-07 09:55] VITALS: BP 96/57
[2019-03-07 13:34] VITALS: BP 101/56
--- NOTE | 2019-03-07 13:53 | NUR ---
PATIENT IS RESTING COMFORTABLY. DENIES ANY NEEDS AT THIS TIME.
--- NOTE | 2019-03-07 13:58 | MORECARE ---
CASE MANAGEMENT DISCHARGE SUMMARY PATIENT: KATHLEEN SINGH UNIT: [id number] ADM DATE: 03/06/19 AGE: 24 : 95 SEX: F ROOM/BED: D.6471 AUTHOR: ROWENA,DOC PHYSICIAN: REFERRING PHYSICIAN: PETE BEAULIEU MD DATE OF SERVICE: 03/07/19 Discharge Plan Patient Name: KATHLEEN SINGH Facility: [facility]:[place] : 1995 Planned Disposition: Home Anticipated Discharge Date: 03/09/19 Discharge Date: Expected LOS: 3 Initial Reviewer: [email or web address] Initial Review Date: 03/06/2019 Generated: 03/07/19 2:58 pm DCP- Discharge Planning Updated by [email or web address]: Zoila Bahena on 03/07/19 12:[address] DC PLAN: Return home independently with boyfriend. ANTICIPATED DC NEEDS: Denied dc needs. CM met with patient to complete initial dc planning assessment. CM educated patient on the CM role and verbal consent given by patient to complete assessment. CM verified patient's address, phone number, and emergency contact phone numbers. Patient lives at home with her boyfriend. At discharge patient plans to return home and feels this is a safe discharge. CM discussed availability of home health, rehab services, and medical equipment. Patient denied known discharge needs at this time. Patient reports her boyfriend will transport her home at time of discharge. CM will continue to follow and will assist as needed with dc plans/needs. Zoila Bahena RN, [facility] DCPIA - Discharge Planning Initial Assessment Updated by [email or web address]: Zoila Bahena on 03/07/19 1:51 pm * Is the patient Alert and Oriented? Yes * How many steps to enter\exit or inside your home? * PCP [facility]ses [facility]. Provided her information on [facility]. * Pharmacy [facility] in [place]. * Preadmission Environment Home with Family * ADLs Independent * Equipment None * List name and contact numbers for known caregivers / representatives who currently or will assist patient after discharge: Dario soteloienandrews - [phone] * Verbal permission to speak to the caregivers and representatives has been obtained from the patient. Yes * Community resources currently utilized None * Additional services required to return to the preadmission environment? No * Can the patient safely return to the preadmission environment? Yes * Has this patient been hospitalized within the prior 30 days at any hospital? Yes Patient Name: KATHLEEN SINGH Page 39668 at 1358 All edits/amendments must be made on the electronic document DICTATION DATE: 03/07/191357 SUPPORT ENGINEER: AUNG 03/07/19 1358 RPT#: [id number] DC DATE: STATUS: ADM IN [facility] [address] [place] [address] END OF REPORT
[2019-03-07 15:41] VITALS: Ht 180.3 cm; Wt 78.6 kg
--- NOTE | 2019-03-07 16:03 | NUR ---
ASKED RICK FOR BENADRYL FOR THIS PATIENT AFTER SHE REQUESTED IT FOR HER SKIN ITCHING FROM THE MORPHINE. SHE DENIES ANY NEEDS AT THIS TIME. REPORTS THAT SHE WILL BE TAKING A SHOWER LATER WHEN HER COMES AND BRINGS ALL HER PERSONAL THINGS.
--- NOTE | 2019-03-07 16:04 | NUR ---
RECORDS SENT FROM [facility] AND IN CHART.
[2019-03-07 17:30] VITALS: BP 92/45
--- NOTE | 2019-03-07 19:10 | NUR ---
BEDSIDE REPORT RECEIVED FROM DAY SHIFT, PT CARE ASSUMED. INTRODUCED SELF AND WROTE NAME ON BOARD. PT SITTING UP IN BED, AAOX4. DENIES ANY NEEDS AT THIS TIME. BED IN LOWEST POSITION, SR X2, CALL LIGHT WITHIN REACH. WILL CONTINUE TO MONITOR.
[2019-03-07 20:00] VITALS: BP 101/40
[2019-03-08 04:00] VITALS: BP 100/47
[2019-03-08 05:57] LABS: BASOPHILS 0.2 % (0-2); EOSINOPHILS 3.7 % (0-7); HEMATOCRIT 32.9 % (36.0-48.0); HEMOGLOBIN 10.2 g/dL (12-16); IMMATURE GRANULOCYTES 0.2 % (0-5); LYMPHOCYTES 43.4 % (15-50); MCH 27.3 pg (26.0-34.0); MEAN PLATELET VOLUME 9.5 fL (7.4-10.4); NEUTROPHILS 43.5 % (40-80); PLATELET COUNT 211 10x3/uL (130-400); RBC 3.74 10x6/uL (4.00-5.40); WBC 4.1 10x3/uL (4.8-10.8)
[2019-03-08 06:16] LABS: ALBUMIN 3.1 g/dL (3.4-5.0); ALKALINE PHOSPHATASE 143 U/L (46-116); ALT (SGPT) 157 U/L (10-68); AMYLASE - SERUM 51 U/L (25-115); BILIRUBIN - TOTAL 0.59 mg/dL (0.2-1.3); CALC OSMOLALITY 278 mosm/kg (275-300); CALCIUM 8.2 mg/dL (8.5-10.1); CARBON DIOXIDE 29.2 mmol/L (21.0-32.0); CHLORIDE - SERUM 108 mmol/L (98-107); CREATININE - SERUM 0.7 mg/dL (0.6-1.3); GLUCOSE 83 mg/dL (74-106); MAGNESIUM - SERUM 1.7 mg/dL (1.8-2.4); POTASSIUM - SERUM 3.8 mmol/L (3.5-5.1); PROTEIN - SERUM 6.5 g/dL (6.4-8.2); SODIUM 142 mmol/L (136-145); eGFR NON AFRICAN AMERICAN > 90 mL/min (90-120)
[2019-03-08 06:17] LABS: LIPASE 277 U/L (73-393); UREA NITROGEN 4 mg/dL (7-18)
--- NOTE | 2019-03-08 07:51 | NUR ---
A/A/OX4. NPO FOR RECEDURE THIS AFTERNOON AND IS AWARE OF THIS. IV PATENT TO RIGHT HAND WITHOUT REDNESS OR EDEMA AT SITE. WOOD CALKER IN LINE TO DELIVER MORPHINE WITH SETTINGS OF . BED IN LOW POSITION AND CALL LIGHT IN REACH. ASSESSMENT COMPLETED AND WILL CONTINUE POC.
[2019-03-08 08:00] VITALS: BP 102/45
[2019-03-08 12:00] VITALS: BP 100/49
--- NOTE | 2019-03-08 13:48 | NUR ---
Nutrition follow-up: Chart reviewed. Pt still with N/V; down 3# more today labs reviewed Pt is now assessed with severe malnutrition of acute illness R/T pancreatitis AEB: 1. > 6% weight loss in < 1 month 2. < 50% intake of estimated energy needs for > [address] following.
--- NOTE | 2019-03-08 15:53 | NUR ---
TO GI LAB VIA BED
--- NOTE | 2019-03-08 16:36 | NUR ---
BACK TO FLOOR, VSS 102/62, 48, 16, 95% ON ROOM AIR. CALL LIGHT IN REACH.
--- NOTE | 2019-03-08 19:00 | NUR ---
EVENING ROUNDS COMPLETE. PT LAYING IN BED. NO SIGNS OF DISTRESS. AAOX4. PT DENIES ANY NEEDS AT THIS TIME. CL IN REACH, BED IN LOWEST POSITON.
[2019-03-08 20:00] VITALS: BP 98/44
[2019-03-09] VITALS: BP 100/48
[2019-03-09 04:30] VITALS: BP 100/22
[2019-03-09 06:58] LABS: ALKALINE PHOSPHATASE 129 U/L (46-116); AMYLASE - SERUM 57 U/L (25-115); BILIRUBIN - TOTAL 0.46 mg/dL (0.2-1.3); CALCIUM 8.2 mg/dL (8.5-10.1); CARBON DIOXIDE 28.2 mmol/L (21.0-32.0); CHLORIDE - SERUM 107 mmol/L (98-107); CREATININE - SERUM 0.6 mg/dL (0.6-1.3); GLUCOSE 94 mg/dL (74-106); LIPASE 318 U/L (73-393); MAGNESIUM - SERUM 1.8 mg/dL (1.8-2.4); PHOSPHOROUS 4.5 mg/dL (2.5-4.9); POTASSIUM - SERUM 4.2 mmol/L (3.5-5.1); PROTEIN - SERUM 5.9 g/dL (6.4-8.2); SODIUM 142 mmol/L (136-145); eGFR NON AFRICAN AMERICAN > 90 mL/min (90-120)
[2019-03-09 07:00] LABS: ALT (SGPT) 115 U/L (10-68); CALC OSMOLALITY 280 mosm/kg (275-300); UREA NITROGEN 6 mg/dL (7-18)
[2019-03-09 07:25] LABS: HEMATOCRIT 31.1 % (36.0-48.0); HEMOGLOBIN 10.4 g/dL (12-16); LYMPHOCYTES 42.4 % (15-50); MCH 28.2 pg (26.0-34.0); MCHC 33.4 g/dL (31.0-37.0); MCV 84.3 fL (80.0-100.0); MEAN PLATELET VOLUME 9.5 fL (7.4-10.4); NEUTROPHILS 49.4 % (40-80); PLATELET COUNT 200 10x3/uL (130-400); RBC 3.69 10x6/uL (4.00-5.40); WBC 4.4 10x3/uL (4.8-10.8)
--- NOTE | 2019-03-09 07:30 | NUR ---
A/A/OX4. DENIES ANY NEEDS AT PRESENT TIME AND NO REQUESTS VOICED. IV PATENT TO RIGHT HAND WITHOUT REDNESS OR EDEMA NOTED. ASSESSMENT COMPLETED AND WILL CONTINUE POC.
[2019-03-09 08:00] VITALS: BP 109/41
[2019-03-09 12:00] VITALS: BP 107/54
--- NOTE | 2019-03-09 14:44 | NUR ---
DISCHARGE INSTRUCTIONS REVIEWED WITH PT AND VERBALIZES UNDERSTANDING WITH NO QUESTIONS. REQUESTED FLU VACCINE AND WAS GIVEN. IV DC'D WTIH CATH TIP INTACT. LEFT FLOOR VIA W/C AND LEFT FACILITY VIA PRIVATE VEHICLE WITH ALL PERSONAL BELONGINGS.
--- NOTE | 2019-03-09 17:23 | MORECARE ---
CASE MANAGEMENT DISCHARGE SUMMARY PATIENT: KATHLEEN SINGH UNIT: [id number] ADM DATE: 03/06/19 AGE: 24 : [birth year] SEX: F ROOM/BED: D.7547 AUTHOR: ROWENA,DOC PHYSICIAN: REFERRING PHYSICIAN: PETE BEAULIEU MD DATE OF SERVICE: 03/09/19 Discharge Plan Patient Name: KATHLEEN SINGH Facility: [facility]:[place] : 1995 Planned Disposition: Home Anticipated Discharge Date: 03/09/19 Discharge Date: 03/09/2019 Expected LOS: 3 Initial Reviewer: [email or web address] Initial Review Date: 03/06/2019 Generated: 03/09/19 6:23 pm DCP- Discharge Planning Updated by [email or web address]: Zoila Bahena on 03/07/19 12:[address] DC PLAN: Return home independently with boyfriend. ANTICIPATED DC NEEDS: Denied dc needs. CM met with patient to complete initial dc planning assessment. CM educated patient on the CM role and verbal consent given by patient to complete assessment. CM verified patient's address, phone number, and emergency contact phone numbers. Patient lives at home with her boyfriend. At discharge patient plans to return home and feels this is a safe discharge. CM discussed availability of home health, rehab services, and medical equipment. Patient denied known discharge needs at this time. Patient reports her boyfriend will transport her home at time of discharge. CM will continue to follow and will assist as needed with dc plans/needs. Zoila Bahena RN, [facility] DCPIA - Discharge Planning Initial Assessment Updated by [email or web address]: Zoila Bahena on 03/07/19 1:51 pm * Is the patient Alert and Oriented? Yes * How many steps to enter\exit or inside your home? * PCP [facility]. Provided her information on [facility]. * Pharmacy [facility] in [place]. * Preadmission Environment Home with Family * ADLs Independent * Equipment None * List name and contact numbers for known caregivers / representatives who currently or will assist patient after discharge: Dario hopperfrienandrews - [phone] * Verbal permission to speak to the caregivers and representatives has been obtained from the patient. Yes * Community resources currently utilized None * Additional services required to return to the preadmission environment? No * Can the patient safely return to the preadmission environment? Yes * Has this patient been hospitalized within the prior 30 days at any hospital? Yes Last DP export: 03/07/19 12:58 Patient Name: KATHLEEN SINGH Page 48418 at 1723 All edits/amendments must be made on the electronic document DICTATION DATE: 03/09/191722 COMPOSITE BOND WORKER: AUNG 03/09/191722 RPT#: [id number] DC DATE:03/09/19 STATUS: DIS IN [facility] [address] [place] [address] END OF REPORT
== END 2019-03-09 14:49 | disposition home or self-care (01) | DRG 438 ==
LOC: D.ER 11:10 → D.M2 16:46
PROVIDERS: Family Medicine; ADMIT Family Medicine; ATTEND Family Medicine
DX: K85.90 Acute pancreatitis without necrosis or infection, unspecified (principal); E43 Unspecified severe protein-calorie malnutrition; F17.213 Nicotine dependence, cigarettes, with withdrawal; K21.9 Gastro-esophageal reflux disease without esophagitis; G40.909 Epilepsy, unspecified, not intractable, without status epilepticus

== ENCOUNTER 2019-06-12 21:02 | Inpatient (IN) | payer MEDICAID ==
[~2019-06-12] VITALS: Ht 180.3 cm; Wt 78.5 kg
[~2019-06-12 21:02] MED LIST changes: +HYDROCODON-ACE1 EAC7 PO
[2019-06-12 21:55] LABS: BASOPHILS 0.2 % (0-2); EOSINOPHILS 1.8 % (0-7); HEMATOCRIT 36.6 % (36.0-48.0); IMMATURE GRANULOCYTES 0.1 % (0-5); LYMPHOCYTES 27.7 % (15-50); MCH 28.1 pg (26.0-34.0); MCHC 32.8 g/dL (31.0-37.0); MCV 85.7 fL (80.0-100.0); MEAN PLATELET VOLUME 8.6 fL (7.4-10.4); MONOCYTES 6.1 % (2-11); NEUTROPHILS 64.1 % (40-80); PLATELET COUNT 270 10x3/uL (130-400); RBC 4.27 10x6/uL (4.00-5.40); RDW 13.4 % (11.5-14.5); WBC 9.5 10x3/uL (4.8-10.8)
[2019-06-12 22:01] LABS: CALC OSMOLALITY 277 mosm/kg (275-300); CALCIUM 8.8 mg/dL (8.5-10.1); CARBON DIOXIDE 28.1 mmol/L (21.0-32.0); CHLORIDE - SERUM 105 mmol/L (98-107); CREATININE - SERUM 0.9 mg/dL (0.6-1.3); GLUCOSE 115 mg/dL (74-106); POTASSIUM - SERUM 3.6 mmol/L (3.5-5.1); SODIUM 139 mmol/L (136-145); UREA NITROGEN 11 mg/dL (7-18); eGFR NON AFRICAN AMERICAN 81 mL/min (90-120)
[2019-06-12 22:09] LABS: ALBUMIN 3.6 g/dL (3.4-5.0); ALKALINE PHOSPHATASE 60 U/L (30-120); ALT (SGPT) 26 U/L (10-68); BILIRUBIN - TOTAL 0.33 mg/dL (0.2-1.3); C-REACTIVE PROTEIN 0.2 mg/dL (0.0-0.9); LIPASE 71 U/L (73-393); PROTEIN - SERUM 7.2 g/dL (6.4-8.2)
[2019-06-12 22:19] LABS: BILIRUBIN NEGATIVE (NEGATIVE); GLUCOSE NEGATIVE (NEGATIVE); KETONE NEGATIVE (NEGATIVE); NITRITE NEGATIVE (NEGATIVE); SPECIFIC GRAVITY 1.005 (1.005-1.020); UROBILINOGEN NORMAL (NORMAL)
[2019-06-12 23:37] VITALS: BP 105/57
[2019-06-13] VITALS (8 sets, daily range): BP systolic 93–122; BP diastolic 48–64; BMI 24.1
--- NOTE | 2019-06-13 00:09 | NUR ---
PATIENT REQUEST PAIN MEDICACTION. MORPHINE ORDERED PRN TO ROOM AT ADMINSTER, BUT BLOOD PRESSURE IS NOT SUFFICIENT.PATIENT TEXTING ON HER PHONE. NAD NOTED. PATIENT COMPLAIN THAT BED IS UNCOMFORTABLE AND INQUIRE WHEN SHE WILL GO UPSTAIRS. EXPLAIN TO PATIENT THAT THERE ARE NO BEDS INPATIENT AT THIS TIME AND WILL BE LATER IN THE MORNING BEFORE SHE IS ADMITTED. PATIENT IS UNHAPPY WITH THIS INFORMATION. APOLOGIES MADE. PATIENT NOT RECEPTIVE
--- NOTE | 2019-06-13 00:46 | NUR ---
WARM BLANKETS PROVIDED. MAKESHIFT PILLOW PROVIDED. WILL PROVIDE PILLOW WHEN [facility] PROVIDES TO ED. HOSPITAL SOCKS PROVIDED AND LIGHTS OUT FOR PATIENT COMFORT
--- NOTE | 2019-06-13 03:40 | NUR ---
REPORT TO DHAVAL FALL WHO ASSUMES CARE AT THIS TIME
--- NOTE | 2019-06-13 07:00 | NUR ---
ASSUMED CARE OF PT AT THIS TIME. PT SITTING UP IN BED. NO S/S OF DISTRESS NOTED. DENIES NEEDS.
--- NOTE | 2019-06-13 11:50 | NUR ---
PT TRANSFERED TO FLOOR WITH ALL BELONGINGS AT THIS TIME.
[2019-06-13 19:15] LABS: HCG URINE NEGATIVE (NEGATIVE); UDS - AMPHET NEGATIVE QUAL (NEGATIVE); UDS - BARB NEGATIVE QUAL (NEGATIVE); UDS - BENZO NEGATIVE QUAL (NEGATIVE); UDS - COCAINE NEGATIVE QUAL (NEGATIVE); UDS - OPIATE POSITIVE QUAL (NEGATIVE); UDS - PCP NEGATIVE QUAL (NEGATIVE); UDS - THC NEGATIVE QUAL (NEGATIVE)
[2019-06-14 01:44] VITALS: BP 93/36
[2019-06-14 05:11] LABS: BASOPHILS 0.3 % (0-2); EOSINOPHILS 1.9 % (0-7); HEMATOCRIT 36.7 % (36.0-48.0); HEMOGLOBIN 11.7 g/dL (12-16); IMMATURE GRANULOCYTES 0.1 % (0-5); LYMPHOCYTES 32.2 % (15-50); MCH 27.6 pg (26.0-34.0); MCHC 31.9 g/dL (31.0-37.0); MCV 86.6 fL (80.0-100.0); MEAN PLATELET VOLUME 8.7 fL (7.4-10.4); MONOCYTES 8.8 % (2-11); NEUTROPHILS 56.7 % (40-80); PLATELET COUNT 259 10x3/uL (130-400); RBC 4.24 10x6/uL (4.00-5.40); RDW 13.2 % (11.5-14.5)
[2019-06-14 05:34] LABS: ANION GAP 13.5 mmol/L (8-16); CALCIUM 8.2 mg/dL (8.5-10.1); CARBON DIOXIDE 25.7 mmol/L (21.0-32.0)
[2019-06-14 05:37] LABS: POTASSIUM - SERUM 4.2 mmol/L (3.5-5.1)
[2019-06-14 06:48] VITALS: BP 95/54
--- NOTE | 2019-06-14 07:20 | NUR ---
ALERT AND ORIENTED, RESTING IN BED WITH EYES OPEN. NO C/O PAIN. NO S/S OF ACUTE DISTRESS NOTED. SCDS ON. IV TO RIGHT HAND, SL. SITE PATENT WITHOUT REDNESS OR SWELLING. DENIES ANY NEEDS AT THIS TIME. CALL LIGHT IN REACH. WILL CONTINUE TO MONITOR.
[2019-06-14 09:01] VITALS: BP 96/47
[2019-06-14 14:19] VITALS: Ht 180.3 cm; Wt 78.5 kg
[2019-06-14 16:44] VITALS: BP 98/70
--- NOTE | 2019-06-14 17:37 | NUR ---
I have reviewed this patient and I concur with the Shift Assessment completed by the Licensed Practical Nurse today this shift.
--- NOTE | 2019-06-14 19:24 | NUR ---
SITTING UP IN BED. PT STATES NEEDS A NICOTINE PATCH. DENIES ANY NEEDS AT THIS TIME. CALL LIGHT IN REACH. WILL CONTINUE TO MONITOR.
[2019-06-14 20:00] VITALS: BP 96/42
[2019-06-15] VITALS: BP 103/49
--- NOTE | 2019-06-15 03:31 | NUR ---
ALERT AND ORRENTED X4 ABLE TO VOICE NEEDS AND WANTS TO STAFF. IV TO RIGHT HAND ON ROOM AIR. UP AT SCOTT. NO DISTRESS AT THIS TIME.CALL LIGHT IN REACH.
[2019-06-15 07:11] LABS: BASOPHILS 0.3 % (0-2); HEMATOCRIT 34.3 % (36.0-48.0); HEMOGLOBIN 11.3 g/dL (12-16); IMMATURE GRANULOCYTES 0.1 % (0-5); LYMPHOCYTES 32.4 % (15-50); MCHC 32.9 g/dL (31.0-37.0); MCV 84.9 fL (80.0-100.0); MEAN PLATELET VOLUME 8.5 fL (7.4-10.4); MONOCYTES 9.8 % (2-11); NEUTROPHILS 55.4 % (40-80); PLATELET COUNT 240 10x3/uL (130-400); RBC 4.04 10x6/uL (4.00-5.40); RDW 13.1 % (11.5-14.5); WBC 7.1 10x3/uL (4.8-10.8)
--- NOTE | 2019-06-15 07:15 | NUR ---
ALERT AND ORIENTED. NO C/O PAIN. NO S/S OF ACUTE DISTRESS NOTED. IV TO RIGHT HAND, SL. SITE PATENT WITHOUT REDNESS OR SWELLING. DENIES ANY NEEDS AT THIS TIME. CALL LIGHT IN REACH. WILL CONTINUE TO MONITOR.
[2019-06-15 07:26] LABS: CALC OSMOLALITY 276 mosm/kg (275-300); CALCIUM 8.2 mg/dL (8.5-10.1); CARBON DIOXIDE 28.2 mmol/L (21.0-32.0); CHLORIDE - SERUM 104 mmol/L (98-107); CREATININE - SERUM 0.9 mg/dL (0.6-1.3); GLUCOSE 93 mg/dL (74-106); POTASSIUM - SERUM 4.1 mmol/L (3.5-5.1); SODIUM 139 mmol/L (136-145); UREA NITROGEN 10 mg/dL (7-18); eGFR NON AFRICAN AMERICAN 81 mL/min (90-120)
[2019-06-15 08:11] VITALS: BP 91/39
[2019-06-15 08:41] VITALS: BP 108/57
[2019-06-15 13:41] VITALS: BP 101/54
[2019-06-15] MEDS ORDERED: ERYTHROMYCIN250 M1 PO (14:10)
[2019-06-15] MEDS ORDERED: ACETAMINOPHEN325 MG PO (14:10)
[2019-06-15] MEDS ORDERED: PROTONIX40 MG PO (14:11)
[2019-06-15] MEDS ORDERED: MIRALAX17 GM PO (14:11)
[2019-06-15] MEDS ORDERED: FLORAJEN3 CAPS460 MG PO (14:11)
--- NOTE | 2019-06-15 15:33 | MORECARE ---
CASE MANAGEMENT DISCHARGE SUMMARY PATIENT: KATHLEEN SINGH UNIT: [id number] ADM DATE: 06/14/19 AGE: 24 : 95 SEX: F ROOM/BED: D.2240 AUTHOR: BRANDY GUAMAN PHYSICIAN: REFERRING PHYSICIAN: KENDRA SCHWAB MD DATE OF SERVICE: 06/15/19 Discharge Plan Patient Name: KATHLEEN SINGH Facility: [facility]:[place] : 1995 Planned Disposition: Home Anticipated Discharge Date: 06/15/19 Discharge Date: Expected LOS: 1 Initial Reviewer: [email or web address] Initial Review Date: 06/15/2019 Generated: 06/15/19 4:32 pm Patient Name: KATHLEEN SINGH Page 31600 at 1533 All edits/amendments must be made on the electronic document DICTATION DATE: 06/15/19 1532 BLENDING PLANT OPERATOR: AUNG 06/15/19 1532 RPT#: [id number] DC DATE: STATUS: ADM IN [facility] [address] [place] [address] END OF REPORT
--- NOTE | 2019-06-15 15:41 | MORECARE ---
CASE MANAGEMENT DISCHARGE SUMMARY PATIENT: KATHLEEN SINGH UNIT: [id number] ADM DATE: 06/14/19 AGE: 24 : [birth year] SEX: F ROOM/BED: D.2240 AUTHOR: ROWENADOC PHYSICIAN: REFERRING PHYSICIAN: KENDRA SCHWAB MD DATE OF SERVICE: 06/15/19 Discharge Plan Patient Name: KATHLEEN SINGH Facility: [facility]:[place] : 1995 Planned Disposition: Home Anticipated Discharge Date: 06/15/19 Discharge Date: Expected LOS: 1 Initial Reviewer: [email or web address] Initial Review Date: 06/15/2019 Generated: 06/15/19 4:40 pm Comments DCP- Discharge Planning Updated by [email or web address]: Lianna Bustillo on 06/15/19 2:[address] Patient Name: KATHLEEN SINGH Admission Status: ER Accout number: [id number] Admission Date: 06-14-2019 : 1995 Admission Diagnosis: Attending: KENDRA SCHWAB Current LOS: 1 Anticipated DC Date: 06-15-2019 Planned Disposition: Home Primary Insurance: MEDICAID [place] Discharge Planning Comments: CM met with patient to complete initial dc planning assessment. CM educated patient on the CM role and verbal consent given by patient to complete assessment. Patient lives at home with her boyfriend, 1 and 4 year olds. At discharge patient plans to return and feels this is a safe discharge. CM discussed availability of home health, rehab services, and medical equipment. Patient denied known discharge needs at this time. I offered to give her the number for [facility] to get a PCP, she states she has the number just hasn't done it yet. I informed her of the importance of getting established with a PCP, voiced understanding. CM will continue to follow and will assist as needed with dc plans/needs. Electromechanical Assembler: Lianna Bustillo DCPIA - Discharge Planning Initial Assessment Updated by [email or web address]: Lianna Bustillo on 06/15/19 3:33 pm * Is the patient Alert and Oriented? Yes * How many steps to enter\exit or inside your home? 2/0 * PCP No PCP * Pharmacy [facility] in [place] * Preadmission Environment Home with Family * ADLs Independent * Equipment None * List name and contact numbers for known caregivers / representatives who currently or will assist patient after discharge: Dario De La Cruz - boyfriend - [phone] * Verbal permission to speak to the caregivers and representatives has been obtained from the patient. Yes * Community resources currently utilized None * Additional services required to return to the preadmission environment? No * Can the patient safely return to the preadmission environment? Yes * Has this patient been hospitalized within the prior 30 days at any hospital? No Last DP export: 06/15/19 2:33 p Patient Name: KATHLEEN SINGH Page [id number] at 1541 All edits/amendments must be made on the electronic document DICTATION DATE: 06/15/191539 SCIENTIFIC ASSOCIATE: AUNG 06/15/19 154 RPT#: [id number] DC DATE: STATUS: ADM IN [facility] [address] [place] [address] END OF REPORT
--- NOTE | 2019-06-15 17:39 | NUR ---
I have reviewed this patient and I concur with the Shift Assessment completed by the Licensed Practical Nurse today this shift.
--- NOTE | 2019-06-15 18:14 | NUR ---
DISCHARGED PATIENT HOME WITH FAMILY. DISCONTINUED IV, CATHETER TIP INTACT. WENT OVER DISCHARGE INSTRUCTIONS WITH PATIENT, VERBALIZED UNDERSTANDING. DENIES ANYTHING FURHTER.
--- NOTE | 2019-06-18 09:26 | MORECARE ---
CASE MANAGEMENT DISCHARGE SUMMARY PATIENT: KATHLEEN SINGH UNIT: [id number] ADM DATE: 06/14/19 AGE: 24 : [birth year] SEX: F ROOM/BED: D.2240 AUTHOR: ROWENA,DOC PHYSICIAN: REFERRING PHYSICIAN: KENDRA SCHWAB MD DATE OF SERVICE: 06/18/19 Discharge Plan Patient Name: KATHLEEN SINGH Facility: [facility]:[place] : 1995 Planned Disposition: Home Anticipated Discharge Date: 06/15/19 Discharge Date: 06/15/2019 Expected LOS: 1 Initial Reviewer: [email or web address] Initial Review Date: 06/15/2019 Generated: 06/18/19 10:26 am Comments DCP- Discharge Planning Updated by [email or web address]: Lianna Bustillo on 06/15/19 2:[address] Patient Name: KATHLEEN SINGH Admission Status: ER Accout number: [id number] Admission Date: 06-14-2019 : 1995 Admission Diagnosis: Attending: KENDRA SCHWAB Current LOS: 1 Anticipated DC Date: 06-15-2019 Planned Disposition: Home Primary Insurance: MEDICAID [place] Discharge Planning Comments: CM met with patient to complete initial dc planning assessment. CM educated patient on the CM role and verbal consent given by patient to complete assessment. Patient lives at home with her boyfriend, 1 and 4 year olds. At discharge patient plans to return and feels this is a safe discharge. CM discussed availability of home health, rehab services, and medical equipment. Patient denied known discharge needs at this time. I offered to give her the number for [facility] to get a PCP, she states she has the number just hasn't done it yet. I informed her of the importance of getting established with a PCP, voiced understanding. CM will continue to follow and will assist as needed with dc plans/needs. Efficiency Manager: Lianna Busitllo DCPIA - Discharge Planning Initial Assessment Updated by [email or web address]: Lianna Bustillo on 06/15/19 3:33 pm * Is the patient Alert and Oriented? Yes * How many steps to enter\exit or inside your home? 2/0 * PCP No PCP * Pharmacy [facility] in [place] * Preadmission Environment Home with Family * ADLs Independent * Equipment None * List name and contact numbers for known caregivers / representatives who currently or will assist patient after discharge: Dario Jeffries boyfriend - [phone] * Verbal permission to speak to the caregivers and representatives has been obtained from the patient. Yes * Community resources currently utilized None * Additional services required to return to the preadmission environment? No * Can the patient safely return to the preadmission environment? Yes * Has this patient been hospitalized within the prior 30 days at any hospital? No Last DP export: 06/15/19 2:41 p Patient Name: KATHLEEN SINGH Page [id number] at 0926 All edits/amendments must be made on the electronic document DICTATION DATE: 06/18/19925 IRONWORKER APPRENTICE SHOP: AUNG 06/18/19925 RPT#: [id number] DC DATE:06/15/19 STATUS: DIS IN [facility] [address] [place] [address] END OF REPORT
== END 2019-06-15 18:15 | disposition home or self-care (01) | DRG 392 ==
LOC: D.ER 21:02 → D.MS 06-13 11:15 → OBSVTIME 06-13 11:16 → D.MS 06-14 13:37
PROVIDERS: Family Medicine; Internal Medicine Gastroenterology; ADMIT Internal Medicine Nephrology; ATTEND Internal Medicine Nephrology
DX: K31.84 Gastroparesis (principal); F17.203 Nicotine dependence unspecified, with withdrawal; G40.909 Epilepsy, unspecified, not intractable, without status epilepticus; K21.9 Gastro-esophageal reflux disease without esophagitis

== ENCOUNTER 2019-08-21 21:10 | Inpatient (IN) | payer MEDICAID ==
[~2019-08-21] VITALS: Ht 180.3 cm; Wt 89.6 kg
[~2019-08-21 21:10] MED LIST changes: +ERYTHROMYCIN250 M1 PO; +FLORAJEN3 CAPS460 MG PO; +MIRALAX17 GM PO
[2019-08-21 21:30] VITALS: BP 108/70
[2019-08-21 21:57] LABS: BASOPHILS 0.2 % (0-2); EOSINOPHILS 0.1 % (0-7); HEMATOCRIT 39.5 % (36.0-48.0); IMMATURE GRANULOCYTES 0.3 % (0-5); LYMPHOCYTES 10.5 % (15-50); MCH 28.8 pg (26.0-34.0); MCHC 32.9 g/dL (31.0-37.0); MCV 87.6 fL (80.0-100.0); MONOCYTES 10.3 % (2-11); NEUTROPHILS 78.6 % (40-80); PLATELET COUNT 241 10x3/uL (130-400); RBC 4.51 10x6/uL (4.00-5.40); RDW 13.6 % (11.5-14.5); WBC 11.4 10x3/uL (4.8-10.8)
[2019-08-21 22:00] VITALS: BP 105/61
[2019-08-21 22:11] LABS: BILIRUBIN NEGATIVE (NEGATIVE); GLUCOSE NEGATIVE (NEGATIVE); KETONE NEGATIVE (NEGATIVE); NITRITE NEGATIVE (NEGATIVE); UROBILINOGEN NORMAL (NORMAL)
[2019-08-21 22:12] LABS: BACTERIA MANY /hpf (NEGATIVE); EPITHELIAL CELLS 0-5 /hpf (0-5); RED CELLS - URINE 0-5 /hpf (0-5); WHITE CELLS - URINE >50 /hpf (NEGATIVE)
[2019-08-21 22:14] LABS: CALC OSMOLALITY 267 mosm/kg (275-300); CALCIUM 9.3 mg/dL (8.5-10.1); CARBON DIOXIDE 26.2 mmol/L (21.0-32.0); CHLORIDE - SERUM 99 mmol/L (98-107); CREATININE - SERUM 0.9 mg/dL (0.6-1.3); GLUCOSE 110 mg/dL (74-106); POTASSIUM - SERUM 3.7 mmol/L (3.5-5.1); SODIUM 134 mmol/L (136-145); UREA NITROGEN 10 mg/dL (7-18); eGFR NON AFRICAN AMERICAN 81 mL/min (90-120)
[2019-08-21 22:23] LABS: HCG URINE NEGATIVE (NEGATIVE)
[2019-08-21 22:24] LABS: ALBUMIN 3.7 g/dL (3.4-5.0); ALKALINE PHOSPHATASE 68 U/L (30-120); ALT (SGPT) 27 U/L (10-68); LIPASE 55 U/L (73-393); PROTEIN - SERUM 8.3 g/dL (6.4-8.2)
[2019-08-21 22:30] VITALS: BP 98/54
[2019-08-21 22:30] LABS: TROPONIN-I < 0.017 ng/mL (0.000-0.060)
[2019-08-21 23:01] VITALS: BP 106/55
[2019-08-21 23:30] VITALS: BP 103/59
[2019-08-21 23:51] VITALS: BP 103/59
--- NOTE | 2019-08-21 23:52 | NUR ---
PT STATING SHE STILL FEELS POORLY. EDP NOTIFIED.
[2019-08-22] VITALS: BP 106/54
--- NOTE | 2019-08-22 02:00 | NUR ---
[facility] ER VIA TO 2111 BED LOW AND LOCKED CALL LIGHT GIVEN TO PT PT C/O SOME NASEA BUT SEVERE THIRST AND ALSO PAIN NEEDS SEEN TO AT THIS TIME
[2019-08-22 04:00] VITALS: BP 111/56
[2019-08-22 04:52] VITALS: Ht 180.3 cm; Wt 89.6 kg
[2019-08-22 06:27] LABS: BASOPHILS 0.1 % (0-2); EOSINOPHILS 0.1 % (0-7); HEMATOCRIT 33.1 % (36.0-48.0); HEMOGLOBIN 10.6 g/dL (12-16); IMMATURE GRANULOCYTES 0.2 % (0-5); LYMPHOCYTES 11.8 % (15-50); MCV 87.6 fL (80.0-100.0); MEAN PLATELET VOLUME 9.2 fL (7.4-10.4); NEUTROPHILS 74.8 % (40-80); PLATELET COUNT 194 10x3/uL (130-400); RBC 3.78 10x6/uL (4.00-5.40); WBC 9.7 10x3/uL (4.8-10.8)
[2019-08-22 06:33] LABS: APTT 32.4 SECONDS (22.8-39.4); INR 1.21 (0.85-1.17); PROTIME 15.3 SECONDS (11.6-15.0)
[2019-08-22 06:47] LABS: CALCIUM 7.5 mg/dL (8.5-10.1); CARBON DIOXIDE 23.8 mmol/L (21.0-32.0); CHLORIDE - SERUM 102 mmol/L (98-107); CREATININE - SERUM 0.9 mg/dL (0.6-1.3); FERRITIN 135 ng/mL (3-244); GLUCOSE 123 mg/dL (74-106); MAGNESIUM - SERUM 1.5 mg/dL (1.8-2.4); PHOSPHOROUS 2.3 mg/dL (2.5-4.9); SODIUM 135 mmol/L (136-145); eGFR NON AFRICAN AMERICAN 81 mL/min (90-120)
[2019-08-22 06:52] LABS: CALC OSMOLALITY 268 mosm/kg (275-300); UREA NITROGEN 7 mg/dL (7-18)
[2019-08-22 06:59] LABS: C-REACTIVE PROTEIN 10.8 mg/dL (0.0-0.9)
[2019-08-22 08:00] VITALS: BP 99/52
--- NOTE | 2019-08-22 09:10 | NUR ---
AM MEDS GIVEN AT THIS TIME. PT ASKING WHEN SHE CAN HAVE PAIN MEDICATION, INFORMED PT THAT SHE WOULD HAVE TO WAIT UNTIL IT IS DO AT 1030. PT DENIES ANY OTHER NEEDS AT THIS TIME. CALL LIGHT IN REACH, NAD NOTED,WILL CONTINUE TO MONITOR.
[2019-08-22 09:41] LABS: ERYTHROCYTE SEDIMENTATION RATE 26 mm/hr (0-20)
[2019-08-22 12:00] VITALS: BP 113/58
[2019-08-22 16:00] VITALS: BP 110/60
--- NOTE | 2019-08-22 19:32 | NUR ---
REPORT RECEIVED, WILL CONTINUE POC. PATIENT IS AAOX4, LYING IN SEMI-FOWLERS POSITION. PATIENT IS C/O PAIN IN BACK, HEAD, ABDOMEN. TEMP IS 100.6 ORAL. TYLENOL GIVEN FOR FEVER AND MORPHINE ADMINISTERED FOR PAIN 10/10 WITH ZOFRAN FOR NAUSEA. PATIENT DENIES FURTHER NEEDS AT THIS TIME. CL IN REACH, BED LOCKED AND LOWERED. WILL CTM.
[2019-08-22 20:00] VITALS: BP 112/64
--- NOTE | 2019-08-22 22:00 | NUR ---
PATIENT REFUSING TELEMETRY, DREDGE CAPTAIN NOTIFIED AND TELEMETRY TURNED IN.
--- NOTE | 2019-08-22 23:45 | NUR ---
PATIENT C/O PAIN 6/10 ADMINISTERED PRN MORPHINE AND ZOFRAN PER ORDERS. HUNG AZITHROMYCIN PER ORDERS.
[2019-08-23 04:00] VITALS: BP 105/56; BP 99/51
--- NOTE | 2019-08-23 04:10 | NUR ---
PATIENT C/O PAIN 6/10 ADMINISTERED PRN MORPHINE AND ZOFRAN. GAVE APPLE JUICE REQUESTED.
[2019-08-23 07:14] LABS: BASOPHILS 0.2 % (0-2); EOSINOPHILS 1.2 % (0-7); HEMATOCRIT 32.2 % (36.0-48.0); HEMOGLOBIN 10.1 g/dL (12-16); IMMATURE GRANULOCYTES 0.2 % (0-5); LYMPHOCYTES 16.1 % (15-50); MCH 27.7 pg (26.0-34.0); MCHC 31.4 g/dL (31.0-37.0); MCV 88.2 fL (80.0-100.0); MEAN PLATELET VOLUME 8.8 fL (7.4-10.4); MONOCYTES 14.7 % (2-11); NEUTROPHILS 67.6 % (40-80); PLATELET COUNT 172 10x3/uL (130-400); RBC 3.65 10x6/uL (4.00-5.40); RDW 13.8 % (11.5-14.5)
[2019-08-23 07:30] LABS: CALC OSMOLALITY 270 mosm/kg (275-300); CALCIUM 7.9 mg/dL (8.5-10.1); CHLORIDE - SERUM 101 mmol/L (98-107); CREATININE - SERUM 0.9 mg/dL (0.6-1.3); GLUCOSE 130 mg/dL (74-106); POTASSIUM - SERUM 4.4 mmol/L (3.5-5.1); SODIUM 136 mmol/L (136-145); eGFR NON AFRICAN AMERICAN 81 mL/min (90-120)
[2019-08-23 07:33] LABS: MAGNESIUM - SERUM 2.1 mg/dL (1.8-2.4); PHOSPHOROUS 3.3 mg/dL (2.5-4.9); UREA NITROGEN 4 mg/dL (7-18)
[2019-08-23 08:56] VITALS: BP 96/49
[2019-08-23 13:50] VITALS: BP 87/46
[2019-08-23] MEDS ORDERED: SMZ-TMP DS 800-1 TAB PO (18:30)
--- NOTE | 2019-08-23 19:21 | NUR ---
REPORT RECEIVED, WILL CONTINUE POC. PATIENT IS BEING DISCHARED, DC PAPERS SIGNED, IV REMOVED WITH CATH TIP INTACT. PATIENT WAITING FOR HER RIDE TO GET HERE. NO S/S OF DISTRESS OBSERVED, RR EVEN AND UNLABORED ON ROOM AIR.
[2019-08-23 19:23] VITALS: BP 98/51
--- NOTE | 2019-08-23 19:39 | NUR ---
PATIENTS RIDE ARRIVED, PROFESSIONAL ARCHITECT ESCORTED PATIENT DOWN TO EXIT AND ASSISTED INTO VEHICLE.
--- NOTE | 2019-08-27 11:52 | MORECARE ---
CASE MANAGEMENT DISCHARGE SUMMARY PATIENT: KATHLEEN SINGH UNIT: [id number] ADM DATE: 08/22/19 AGE: 24 : [birth year] SEX: F ROOM/BED: D.[facility] AUTHOR: BRANDY GUAMAN PHYSICIAN: REFERRING PHYSICIAN: KENDRA SCHWAB MD DATE OF SERVICE: 08/27/19 Discharge Plan Patient Name: KATHLEEN SINGH Facility: [facility]:[place] : 1995 Planned Disposition: Anticipated Discharge Date: Discharge Date: 08/23/2019 Expected LOS: Initial Reviewer: [email or web address] Initial Review Date: 08/27/2019 Generated: 08/27/19 12:51 pm Patient Name: KATHLEEN SINGH Page [id number] at 1152 All edits/amendments must be made on the electronic document DICTATION DATE: 08/27/19 1151 AD WRITER: AUNG 08/27/19 1151 RPT#: [id number] DC DATE:08/23/19 STATUS: DIS IN [facility] [address] [facility] [place] [address] END OF REPORT
== END 2019-08-23 19:40 | disposition home or self-care (01) | DRG 872 ==
LOC: D.ER 21:10 → D.M2 08-22 00:25
PROVIDERS: Family Medicine; ADMIT Internal Medicine Nephrology; ATTEND Internal Medicine Nephrology
DX: A41.9 Sepsis, unspecified organism (principal); N39.0 Urinary tract infection, site not specified; E87.1 Hypo-osmolality and hyponatremia; F17.203 Nicotine dependence unspecified, with withdrawal; K31.84 Gastroparesis; K21.9 Gastro-esophageal reflux disease without esophagitis

== ENCOUNTER 2019-09-18 18:38 | Emergency (ER) | payer MEDICAID ==
[~2019-09-18] VITALS: Ht 180.3 cm; Wt 81.8 kg
[~2019-09-18 18:38] MED LIST changes: +SMZ-TMP DS 800-1 TAB PO
[2019-09-18 18:55] VITALS: Ht 180.3 cm; Wt 81.8 kg
[2019-09-18] MEDS ORDERED: ATIVAN2 MG PO (19:01)
[2019-09-18 19:17] LABS: BASOPHILS 0.3 % (0-2); EOSINOPHILS 3.1 % (0-7); HEMATOCRIT 38.7 % (36.0-48.0); HEMOGLOBIN 12.8 g/dL (12-16); IMMATURE GRANULOCYTES 0.3 % (0-5); LYMPHOCYTES 23.7 % (15-50); MCH 29.2 pg (26.0-34.0); MCHC 33.1 g/dL (31.0-37.0); MCV 88.2 fL (80.0-100.0); MEAN PLATELET VOLUME 8.6 fL (7.4-10.4); NEUTROPHILS 65.6 % (40-80); PLATELET COUNT 199 10x3/uL (130-400); RBC 4.39 10x6/uL (4.00-5.40); RDW 14.3 % (11.5-14.5); WBC 7.4 10x3/uL (4.8-10.8)
[2019-09-18 19:39] LABS: BILIRUBIN NEGATIVE (NEGATIVE); GLUCOSE NEGATIVE (NEGATIVE); KETONE NEGATIVE (NEGATIVE); NITRITE NEGATIVE (NEGATIVE); UROBILINOGEN NORMAL (NORMAL)
[2019-09-18 19:40] LABS: EPITHELIAL CELLS 0-5 /hpf (0-5); RED CELLS - URINE >50 /hpf (0-5); WHITE CELLS - URINE OCC /hpf (NEGATIVE)
[2019-09-18 19:46] LABS: APTT 25.7 SECONDS (22.8-39.4); CALC OSMOLALITY 275 mosm/kg (275-300); CALCIUM 8.6 mg/dL (8.5-10.1); CARBON DIOXIDE 25.7 mmol/L (21.0-32.0); CHLORIDE - SERUM 101 mmol/L (98-107); CREATININE - SERUM 1.1 mg/dL (0.6-1.3); GLUCOSE 127 mg/dL (74-106); POTASSIUM - SERUM 3.6 mmol/L (3.5-5.1); SODIUM 138 mmol/L (136-145); UREA NITROGEN 8 mg/dL (7-18); eGFR NON AFRICAN AMERICAN 65 mL/min (90-120)
[2019-09-18 19:47] LABS: INR 1.03 (0.85-1.17); PROTIME 13.5 SECONDS (11.6-15.0)
[2019-09-18 19:52] LABS: HCG URINE NEGATIVE (NEGATIVE)
[2019-09-18 20:04] LABS: ALBUMIN 4.1 g/dL (3.4-5.0); ALKALINE PHOSPHATASE 59 U/L (30-120); ALT (SGPT) 25 U/L (10-68); BILIRUBIN - TOTAL 0.62 mg/dL (0.2-1.3); CKMB 0.4 U/L (0.0-3.6); CREATINE KINASE 183 UL (21-215); PRO BNP 58 pg/mL (0-125); PROTEIN - SERUM 7.5 g/dL (6.4-8.2); TROPONIN-I < 0.017 ng/mL (0.000-0.060)
[2019-09-18] MEDS ORDERED: FLUTICASONE PRO16 GM NASAL (20:38)
[2019-09-18] MEDS ORDERED: ZYRTEC10 MG PO (20:38)
[2019-09-19 01:14] VITALS: BP 121/73
== END 2019-09-18 21:19 | disposition home or self-care (01) ==
LOC: D.ER 18:38
PROVIDERS: Family Medicine
DX: J30.9 Allergic rhinitis, unspecified (principal); R05 Cough; R06.02 Shortness of breath; Z72.0 Tobacco use; R07.9 Chest pain, unspecified; R51 Headache; R10.9 Unspecified abdominal pain